=== PATIENT | female | born 1990 | race Caucasian/White ===

== ENCOUNTER 2016-10-10 05:00 | Emergency (ER) | payer MEDICAID, OTHER ==
[2016-10-10 05:35] LABS: BILIRUBIN,URINE NEGATIVE (NEGATIVE); PH,URINE 6.5 PH (5.0-7.5)
[2016-10-10 05:37] LABS: HCG UR QUAL NEGATIVE; UA w/ MICROSCOPIC CHARGE YES
[2016-10-10 05:38] LABS: UR CULTURE IF IND NOT INDICATED; WBC,URINE 0-3 /HPF (0-5)
--- NOTE | 2016-10-10 05:54 | ED Physician Documentation ---
History of Present Illness - Stated complaint Stated Complaint: ABDOMINAL,RT FLANK PAIN - Chief complaint Chief Complaint: Abd Pain - History obtained from History obtained from: Patient, Family - Additonal information Additional information: Patient is a 26-year-old female with a history of depression and anxiety on sertraline. She presents with a complaint of right upper quadrant and right flank pain that started early this morning at 1:30 AM. Positional changes did cause the pain to get better or worse. She had a recurrence of pain at 330 and decided to come into the emergency department. There is no nausea or vomiting. She has no constipation diarrhea, diarrhea, lower urinary symptoms, hematuria or vaginal discharge. She has never had this type of pain before. Review of systems: For pertinent positive and negatives in the review of systems please see history of present illness. Otherwise all other systems have been reviewed and are negative. Dragon disclaimer: Parts of this medical record were created using voice recognition technology. Because of the inherent limitations of this system occasional same sounding word substitutions do occur and persist despite proofreading. Please read the document for context. Review of Systems Ten Systems: 10 systems reviewed and negative Constitutional: denies: Fever, Chills, Myalgias GI: reports: Abdominal Pain. denies: Abdominal Swelling, Nausea, Vomiting, Constipation, Diarrhea, Hematemesis PD PAST MEDICAL HISTORY - Past Medical History Past Medical History: Yes Psych: Depression, Anxiety - Past Surgical History Past Surgical History: No - Present Medications Home Medications: Ambulatory Orders Medication Instructions Recorded Confirmed Bcp 10/10/16 Ondansetron Odt [Zofran] 4 mg TL Q6H PRN #10 tablet 10/10/16 Sertraline HCl 100 mg PO DAILY 10/10/16 10/10/16 Tramadol HCl 50 mg PO Q8HR PRN #14 tablet 10/10/16 - Allergies Allergies/Adverse Reactions: Allergies Allergy/AdvReac Type Severity Reaction Status Date / Time Sulfa (Sulfonamide Allergy Hives Verified 10/10/16 05:06 Antibiotics) Tetracyclines Allergy Hives Verified 10/10/16 05:06 - Social History Does the pt smoke?: No Smoking Status: Never smoker Does the pt drink ETOH?: Yes Does the pt have substance abuse?: No - Immunizations Immunizations are current?: Yes - POLST Patient has POLST: No PD ED PE NORMAL - General General: Alert and oriented X 3, No acute distress, Other (Large habitus female no apparent distress) - Neck Neck: Supple, no meningeal sign - Cardiac Cardiac: RRR, No murmur, No gallop, No rub - Respiratory Respiratory: No respiratory distress - Abdomen Abdomen: Normal bowel sounds, Other - Derm Derm: Normal color, Warm and dry (Minimal tenderness right upper quadrant and mild tenderness to percussion right flank) - Extremities Extremities: No deformity, No tenderness to palpate, Normal ROM s pain, No edema - Neuro Neuro: Alert and oriented X 3 Results - Vitals Vitals: Vital Signs - 24 hr 10/10/16 05:07 Temperature 36.0 C L Heart Rate 99 Respiratory 18 Rate Blood Pressure 145/95 H O2 Saturation 99 Oxygen O2 Source Room air - Labs Labs: Laboratory Tests 10/10/16 10/10/16 10/10/16 05:28 06:32 06:32 WBC 11.6 H RBC 4.30 Hgb 12.5 Hct 37.6 MCV 87.4 MCH 29.1 MCHC 33.3 RDW 13.7 Plt Count 277 MPV 7.9 Neut # 7.7 H Lymph # 2.9 [place] # 0.8 Eos # 0.1 Baso # 0.1 Absolute Nucleated RBC 0.01 Nucleated RBCs 0.1 Sodium 139 Potassium 3.8 Chloride 105 Carbon Dioxide 24 Anion Gap 10.0 BUN 10 Creatinine 0.9 Estimated GFR (MDRD) 77 L Glucose 116 H Calcium 9.1 Total Bilirubin 0.4 AST 20 ALT 23 Alkaline Phosphatase 59 Total Protein 7.3 Albumin 3.7 Globulin 3.6 Albumin/Globulin Ratio 1.0 Lipase 32 Urine Color YELLOW Urine Clarity CLEAR Urine pH 6.5 Ur Specific [place] 1.025 Urine Protein NEGATIVE Urine Glucose (UA) NEGATIVE Urine Ketones NEGATIVE Urine Occult Blood MODERATE H Urine Nitrite NEGATIVE Urine Bilirubin NEGATIVE Urine Urobilinogen 0.2 (NORMAL) Ur Leukocyte Esterase NEGATIVE Urine RBC 0-5 Urine WBC 0-3 Ur Squamous Epith Cells RARE Squamous Urine Bacteria None Seen Ur Microscopic Review INDICATED Urine Culture Comments NOT INDICATED Urine HCG, Qual NEGATIVE PD MEDICAL DECISION MAKING - ED course Complexity details: reviewed old records, reviewed results, re-evaluated patient ED course: Patient is a 26-year-old female who presents with right upper quadrant abdominal pain. She also has right upper quadrant abdominal tenderness on examination. She is a large habitus female no apparent distress. Her pain is mostly gone at this point in time. Quick portable ultrasound done by me demonstrates a large gallstone in the gallbladder quick look at the kidney failed to show any evidence of overt hydronephrosis. At this point in time I am waiting for ultrasound and lab work. This patient looks good I think she can be safely discharged home with surgical follow-up. I did talk with her in fairly significant detail about gallstones, biliary colic and what to expect. Final disposition is pending waiting studies Disposition pending studies but suspect she will be discharged Clinical impression: 1. Right upper quadrant abdominal pain with gallstone on portable ultrasound suspect biliary colic, confirmatory studies pending Departure - Departure Clinical Impression: Biliary colic Condition: Good Instructions: ED Gallstone W Biliary Colic Follow-Up: Danny Monahan MD [Provider Admit Priv/Credential] - Prescriptions: Tramadol HCl 50 mg PO Q8HR PRN #14 tablet PRN Reason: Pain Ondansetron Odt [Zofran] 4 mg TL Q6H PRN #10 tablet PRN Reason: Nausea / Vomiting
[2016-10-10 06:38] LABS: BASOPHILS # (AUTO) 0.1 10^3/uL (0.0-0.1); BASOPHILS % (AUTO) 0.7 %; EOSINOPHILS # (AUTO) 0.1 10^3/uL (0.0-0.7); HCT - HEMATOCRIT 37.6 % (37.0-47.0); HGB - HEMOGLOBIN 12.5 g/dL (12.0-16.0); LYMPHOCYTES # (AUTO) 2.9 10^3/uL (1.5-3.5); LYMPHOCYTES % (AUTO) 25.1 %; MEAN CORPUSCULAR HEMOGLOBIN 29.1 pg (27.0-31.0); MEAN CORPUSCULAR HGB CONC 33.3 g/dL (32.0-36.0); MEAN CORPUSCULAR VOLUME 87.4 fL (81.0-99.0); MEAN PLATELET VOLUME 7.9 fL (7.9-10.8); MONOCYTES # (AUTO) 0.8 10^3/uL (0.0-1.0); MONOCYTES % (AUTO) 6.8 %; NEUTROPHILS # (AUTO) 7.7 10^3/uL (1.5-6.6); NEUTROPHILS % (AUTO) 66.4 %; NUCLEATED RED BLOOD CELLS AUTO 0.1 /100WBC; RED CELL DISTRIBUTION WIDTH 13.7 % (12.0-15.0); UNCORRECTED WHITE BLOOD COUNT 11.6 x10^3/uL; WHITE BLOOD COUNT 11.6 x10^3/uL (4.8-10.8)
[2016-10-10 06:50] LABS: BILIRUBIN,TOTAL 0.4 mg/dL (0.2-1.0); CALCIUM 9.1 mg/dL (8.5-10.3); CREATININE 0.9 mg/dL (0.4-1.0); POTASSIUM 3.8 mmol/L (3.5-5.0); TOTAL PROTEIN 7.3 g/dL (6.7-8.2)
[2016-10-10] MEDS ORDERED: ONDANSETRON ODT 4 MG TABLET TL STA (06:57)
[2016-10-10] MEDS ORDERED: HYDROcod/ACET 5/325 Prepack 6 PO STA (06:57)
[2016-10-10] MEDS ORDERED: HYDROcod/ACETAM 5/325 MG TABLET PO STA (07:00)
[2016-10-10] MEDS ORDERED: HYDROcod/ACETAM 5/325 MG TABLET ONE ×2 (07:06→07:33)
[2016-10-10] MEDS ORDERED: ONDANSETRON ODT 4 MG TABLET ONE ×2 (07:06→07:34)
--- NOTE | 2016-10-10 08:00 | Ultrasound Preliminary Report ---
Exam: US Abdomen Limited IMPRESSION: 1. Cholelithiasis. 2. Fatty liver infiltration. [facility] SITE ID: [id number]
--- NOTE | 2016-10-10 08:03 | Ultrasound Report ---
EXAM: ABDOMEN ULTRASOUND LIMITED, RUQ EXAM DATE: 10/10/2016 07:12 AM. CLINICAL HISTORY: RUQ/R flank pain/gallstone on portable US. COMPARISON: CT 06/11/2014. TECHNIQUE: Real-time scanning was performed with static images obtained. FINDINGS: Liver: Increased in echogenicity. No focal lesion. 16.4 cm. Main portal vein flow: Hepatopetal. Gallbladder: Stone in the neck of the gallbladder measuring 2.3 cm maximum diameter, non-mobile. No w all thickening or pericholecystic fluid. Negative sonographic Ross sign. Biliary System: CBD measures 5.2 mm. No intrahepatic or extrahepatic ductal dilatation. Other: Right kidney 11.7 cm in length without hydronephrosis. IMPRESSION: 1. Cholelithiasis. 2. Fatty liver infiltration. [facility] Referring Provider Line: [phone] SITE ID: [id number]
--- NOTE | 2016-10-10 08:07 | ED Physician Documentation ---
ED Addendum - Addendum Addendum: 10/10/16 08:05 pt turnend over to me at 730 Am, seen by night EMP and worked up, dx biliary colic, sono complete and reviewed by night EMP just waiting for formal rad report to be sure no further abn, sono result as expected and pt dced as planned
[2016-10-10 08:45] VITALS: BP 130/90
== END 2016-10-10 08:47 | disposition home or self-care (01) ==
LOC: ED 05:00
DX: K80.50 Calculus of bile duct without cholangitis or cholecystitis without obstruction (principal)
CPT/HCPCS: 36415; 76705; 80053; 81001; 81025; 83690; 85025; 99283; A9270; Q0162; 81003; 87086

== ENCOUNTER 2016-11-20 13:30 | Day surgery (SDC) | payer MEDICAID ==
[2016-11-20] MEDS ORDERED: LACTATED RINGERS 1,000 ML IV ONE ×2 (13:56→17:33)
[2016-11-20 14:14] LABS: HCG UR QUAL NEGATIVE
[2016-11-20] MEDS ORDERED: SCOPOLAMINE PATCH TOP ONE (14:19)
[2016-11-20] MEDS ORDERED: BUPIVACAINE 0.5% PF 30 ML VIAL SUBQ ONE (14:41)
[2016-11-20] MEDS ORDERED: ceFAZolin 3 GM/20 ML SYRINGE IVP ONE (15:00)
--- NOTE | 2016-11-20 16:55 | SURGERY HX AND PHYSICAL(T) ---
Surgical History & Physical - PMH/PSH/Social Hx Does the pt have a hx of MRSA?: No Eyes, Ears, Nose, Throat: Chronic vision loss Cardiovascular: None Respiratory: None Skin: None Endocrine/Autoimmune: None Gastrointestinal: Chronic diarrhea, Cholelithiasis Urinary: None Musculoskeletal: None Psychiatric: Depression, Anxiety, Panic attacks, Other Smoking Status: Never smoker Does the pt drink ETOH?: Yes Frequency: Occasional Does the pt have substance abuse?: No Substance Use and Type: Marijuana - Home Meds and Allergies Home Medications: Sertraline HCl 100 mg PO DAILY 10/10/16 Norgestimate-Ethinyl Estradiol [Tri-Sprintec Tablet] 1 tab PO DAILY 11/13/16 Allergies/Adverse Reactions: Allergies Allergy/AdvReac Type Severity Reaction Status Date / Time Sulfa (Sulfonamide Allergy Hives Verified 10/10/16 05:06 Antibiotics) Tetracyclines Allergy Hives Verified 10/10/16 05:06 - Vital Signs Temperature: 36 C Respiratory Rate: 16 O2 Saturation: 97 Weight (kg): 117.93 kg Height: 1.63 m - Patient Review Patient Review: Problems were reviewed with the patient during this visit. Medications were reviewed with the patient during this visit. Allergies were reviewed this patient during this visit. Pertinent Tests Reviewed: All pertitent test for this patient were reviewed. - Assessment & Plan Assessment and Plan: Dr. Ashley Cannon initially sent this very pleasant 26-year-old female to our office for the exact same reason back in October 18, 2016. Because more than 30 days were allowed to elapse between the time that the patient was seen in the time of the procedure this new history and physical/update history and physical is mandated. The patient states that the pain is sharp, stabbing, and severe enough where she was doubled over in pain. Eating (especially fatty foods) is an aggravating factor whereas time or pain medications are the only alleviating factors. The patient denies hematemesis, melena, hematochezia, jaundice, or light-colored stools. As an aside she recognized the fact that I am of [place] descent and I recognized that she is of [place] descent. We both speak Nepalese and she frequently goes to [place] to visit with her extended family. Her parents, I believe Ailyn and Henrique, own and operate [employer] is in [place]. Her sister, Caterina, would like to keep the gallstone. Allergies: SULFA (Moderate) * ALL "CYCLINE" ANTIBIOTICS (Moderate) Current Meds: SERTRALINE HCL 50 MG ORAL TABS (SERTRALINE HCL) Take one tablet by mouth daily BACTROBAN OINT (MUPIROCIN OINT) Apply in each nostril twice daily. BIOFREEZE 4 % EXT GEL (MENTHOL (TOPICAL ANALGESIC)) Apply to aching muscles as needed prn TRI-SPRINTEC 0.18/0.215/0.25 MG-35 MCG TABS (NORGESTIM-ETH ESTRAD TRIPHASIC) Take 1 tablet by mouth daily Past Medical History: Epidermal inclusion cyst (ICD-706.2) (QPW58-L20.0) Shoulder pain, left (ICD-719.41) (XFH88-F62.512) Obesity (ICD-278.00) (XSO63-X59.9) Anxiety (ICD-300.00) (WID73-R37.9) Amenorrhea, secondary (ICD-626.0) (VRI01-E78.1) IRRITABLE BOWEL SYNDROME (ICD-564.1) (NSV22-C30.9) DEFICIENCY, VITAMIN D NOS (ICD-268.9) (YCQ64-C58.9) ACNE VULGARIS (ICD-706.1) (LNT95-I46.0) DEPRESSION (ICD-311) (THP50-C28.9) Panic Attacks Past Surgical History: Reviewed history from 10/09/2012 and no changes required: Cyst Removal Family History Summary: Reviewed history Last on 07/31/2016 and no changes required:11/20/2016 Father (biol.) - Has a Hx of Weight Disorder - Entered On: 11/18/2013 Mother (biol.) - Has Family History of Other Diseases - Skin Cancer - Entered On : 10/18/2016 Risk Factors: Smoked Tobacco Use: Never smoker Smokeless Tobacco Use: Never Passive smoke exposure: yes Drug use: no HIV high-risk behavior: no Caffeine use: 1 drinks per day Alcohol use: yes Type: liquor Drinks per day: social Exercise: yes Times per week: 4 Type of Exercise: Working Seatbelt use: 100 % Sun Exposure: occasionally Family History Risk Factors: Family History of [place] in females < 65 years old: no Family History of [place] in males < 55 years old: no Previous Tobacco Use: Signed On - 10/12/2016 Smoked Tobacco Use: Never smoker Smokeless Tobacco Use: Never Passive smoke exposure: yes Drug use: no HIV high-risk behavior: no Caffeine use: 1 drinks per day Review of Systems CONSTITUTIONAL: No weight loss, fever, chills, weakness or fatigue. HEENT: Eyes: No visual loss, blurred vision, double vision or yellow sclerae. Ears, Nose, Throat: No hearing loss, sneezing, congestion, runny nose or sore throat. SKIN: No rash or itching. POSITIVE for acne vulgaris. CARDIOVASCULAR: No chest pain, chest pressure or chest discomfort. No palpitations or edema. RESPIRATORY: No shortness of breath, cough or sputum. GASTROINTESTINAL: No anorexia, nausea, vomiting or diarrhea. No abdominal pain or blood. Diagnosed with IBS. GENITOURINARY: No dysuria. Not . NEUROLOGICAL: No headache, dizziness, syncope, paralysis, ataxia, numbness or tingling in the extremities. No change in bowel or bladder control. MUSCULOSKELETAL: No muscle, back pain, or stiffness. POSITIVE for shoulder pain. HEMATOLOGIC: No anemia, bleeding or bruising. LYMPHATICS: No enlarged nodes. No history of splenectomy. PSYCHIATRIC: POSITIVE for depression - anxiety, and some panic attacks. ENDOCRINOLOGIC: No reports of sweating, cold or heat intolerance. No polyuria or polydipsia. ALLERGIES: No history of asthma, hives, eczema or rhinitis. Physical Exam General: 26 year old female, appears stated age, well developed, well nourished , evaluate in Room [address] [facility] [place] HEENT: Normocephalic, atraumatic, extraocular movement intact, mucous membranes pink and moist, sclera anicteric and not injected Neck: Supple without pain on palpation, mass or bruit Cardiac: Regular rate and rhythm without rub, gallop, or murmur Chest: Clear to auscultation bilaterally Abdomen: Soft, very mild tenderness in the right upper quadrant, normoactive bowel sounds, no hepatomegaly, no splenomegaly Genitourinary: Deferred Rectal: Deferred Extremities: No gross neurovascular problem, no clubbing, cyanosis or edema Gait: Not evaluated. Psychiatric: Alert and oriented to person place and time, asks and answers questions appropriately, mood and affect appropriate Impression & Recommendations: Laparoscopic cholecystectomy, possible open cholecystectomy, possible intraoperative cholangiogram, possible common bile duct exploration. The indications, procedure, alternatives including no surgery, possible risks including infection (deep or superficial), bleeding requiring transfusion (with all of its risks), common bile duct injury and were fully explained to the patient and all questions answered. I korin pictures to help describe what the gallbladder is and how it works. I also explained the pathophysiology. I explained that following the surgery I did not want her lifting anything over 15 pounds for 6 weeks to allow for optimal healing and to decrease the likelihood that a hernia would occur. All questions were fully answered. Verbal and written consent was obtained. The patient, in preparation for surgery will be nothing by mouth, receive a soap and water shower, and receive 2 g of Ancef with induction. I asked her to contact me with any surgical questions and her concerns and she stated that she would. I asked her to let me know if there is any way we can make her say at [facility] more comfortable and she stated that she would let me know. 20minutes of [id number] time spent with the patient, over 80% in discussion and coordination of her care
[2016-11-20] MEDS ORDERED: DEXAMETHASONE 4 MG/ML VIAL IVP ONE (17:22)
[2016-11-20] MEDS ORDERED: NEOSTIGMINE 1 MG/1 ML 10 ML MDV IVP ONE (17:22)
[2016-11-20] MEDS ORDERED: ONDANSETRON 4 MG/2 ML VIAL IVP ONE (17:22)
[2016-11-20] MEDS ORDERED: HYDROmorphone 1 MG/ML SYRINGE IVP ONE (17:22)
[2016-11-20] MEDS ORDERED: MIDAZOLAM 2 MG/2 ML VIAL IVP ONE (17:22)
[2016-11-20] MEDS ORDERED: PROPOFOL 200 MG/20 ML VIAL IVP ONE (17:22)
[2016-11-20] MEDS ORDERED: SUCCINYLCHOLINE 200 MG/10 ML VIAL IVP ONE (17:22)
[2016-11-20] MEDS ORDERED: LIDOCAINE-MPF 2% 5 ML VIAL IM ONE (17:22)
[2016-11-20] MEDS ORDERED: GLYCOPYRROLATE 1 MG/5 ML VIAL IVP ONE (17:22)
[2016-11-20] MEDS ORDERED: ROCURONIUM 50 MG/5 ML VIAL IVP ONE (17:22)
--- NOTE | 2016-11-20 18:46 | OPERATIVE REPORT ---
Operative Report - General Planned Procedure: Laparoscopic cholecystectomy Pre-Op Diagnosis: Biliary colic Procedure Performed: Laparoscopic cholecystectomy Post Op Diagnosis: Same - Procedure Note Primary Surgeon: Danny Monahan Secondary Surgeon: Fatmata Ennis Anesthesia Technique: General ET tube, Local (30 mL 1/2% marcaine) IV Fluids (mL): 1,300 Estimated Blood Loss (mL): 200 Drain/Tube Type: Self contained Complications: None. - Other Other Information/Narrative: OPERATIVE DESCRIPTION/REPORT: After verbal and written informed consent was obtained detailing the risks of infection, bleeding with all of its risks including transfusion, common bile duct injury, and the patient was brought to the operative suite and placed in the supine position on the operating room table. Monitoring devices were applied along with TEDs and pneumatic compressive stockings. Care was taken to avoid pressure points. Prophylactic antibiotics were given. An adequate level of general endotracheal anesthesia was established by Dr. Ennis. The abdomen was then prepped with ChloraPrep and draped in a sterile fashion. A "time in" then confirmed that the paitient was identified with 3 identifiers ( name, date and medical record number), the history and physical was in the chart, the signed consent confirming the procedure was in the chart, the patient was in the correct position, the aforementioned prophylactic measures were in place or given, we had the correct personel and equipment to complete the procedure and that anesthesia, surgery and nursing were given an opportunity to express any concerns. The initial incision was at the umbilicus and dissection to the linea alba was completed using blunt dissection. The linea alba was grasped with a Rosetta and incised. In a similar manner the peritoneum was grasped and incised using Metzenbaum scissors. In this location, a 12 mm blunt tipped, balloon tipped port was placed and the balloon was inflated to keep the port in position. The abdominal cavity was insufflated with carbon dioxide to steady-state pressure of 15 mmHg. Three additional 5 mm ports were placed in standard location for laparoscopic cholecystectomy (subxiphoid and 2 right subcostal) under direct vision of the 30 degree laparoscope and without incident. The patient was then placed in reverse Trendelenburg position and was rotated slightly to their left. The gallbladder fundus was grasped with an atraumatic grasper. Multiple adhesions had to be taken down by blunt and sharp dissection along with electrocautery. Eventually, we identified the infundibulum, and this was then grasped and retracted inferior and laterally. Dissection was then begun in the angle of Calot. During the dissection of the cystic duct the cystic artery was encountered and there was some bleeding from the artery until an clip could be placed on it. The cystic duct had to be identified, clipped and transected until the clip could be placed securely on the cystic artery (I needed to get the cystic duct "out of the way"). The critical view was obtained. Two clips proximally and one clip distally were used to control both the cystic duct and cystic artery. The clips were carefully placed on the cystic duct to avoid occluding the juncture with the common bile duct. Ultimately both the cystic duct and the cystic artery were then transected with laparoscopic shearsafter being doubly clipped proximally and distally. The gallbladder was then removed from its fossa in a retrograde fashion using electrocautery. With the 30 degree 5 mm scope in the subxiphoid position, the gallbladder was placed in an EndoCatch bag to be extracted through the 12 mm port site. I irrigated the right upper quadrant with a liter of warm sterile saline, and the area was aspirated dry. I inspected the gallbladder fossa and there was no bleeding or bile leak. Clips on the cystic duct and cystic artery appeared to be secure. I briefly visually explored the abdomen. There was no other evidence of overt pathology. I injected the port sites at the peritoneal, fascial, and skin levels under direct vision with 0.5% Marcaine. All ports and the EndoCatch containing the gallbladder were removed. Following gallbladder removal, the remaining carbon dioxide was expelled from the abdomen. The fascia at the umbilicus was reapproximated using 2 [id number] 0 Vicryl sutures. The skin at each port site was approximated using a subcuticular 4-0 Monocryl. The surgical count of instruments, needles and sponges was reported as correct twice. Mastisol, Steri-Strips and sterile surgical dressings were applied. The patient was then awakened from anesthesia, extubated, and having tolerated the procedure well, was transported to the recovery room. No complications were encountered. A "time out" confirmed the operation performed , the fluids given, the estimated blood loss and anesthesia, surgery and nursing were given an opportunuty to express any concerns.
[2016-11-20] MEDS: fentaNYL 100 MCG/2 ML VIAL ONE ×2 (19:15→19:36)
[2016-11-20 20:47] VITALS: BP 134/85
== END 2016-11-20 13:31 | disposition home or self-care (01) ==
LOC: SDS 13:30
PROVIDERS: ATTEND Surgery
PROC: 0FT44ZZ Resection of Gallbladder, Percutaneous Endoscopic Approach (ICD-10-PCS; principal; 2016-11-20 14:45)
DX: K80.50 Calculus of bile duct without cholangitis or cholecystitis without obstruction (principal)
CPT/HCPCS: 47562; 81025; J1170; J3490; J7120; 88304

== ENCOUNTER 2017-02-27 14:41 | Outpatient (CLI) | payer MEDICAID ==
[2017-02-27 13:35] LABS: BASOPHILS % (AUTO) 0.3 %; EOSINOPHILS # (AUTO) 0.2 10^3/uL (0.0-0.7); EOSINOPHILS % (AUTO) 2.6 %; HCT - HEMATOCRIT 37.2 % (37.0-47.0); HGB - HEMOGLOBIN 12.3 g/dL (12.0-16.0); LYMPHOCYTES # (AUTO) 2.3 10^3/uL (1.5-3.5); LYMPHOCYTES % (AUTO) 26.9 %; MEAN CORPUSCULAR HEMOGLOBIN 27.5 pg (27.0-31.0); MEAN CORPUSCULAR HGB CONC 33.1 g/dL (32.0-36.0); MEAN CORPUSCULAR VOLUME 82.9 fL (81.0-99.0); MEAN PLATELET VOLUME 8.5 fL (7.9-10.8); MONOCYTES # (AUTO) 0.6 10^3/uL (0.0-1.0); MONOCYTES % (AUTO) 6.8 %; NEUTROPHILS # (AUTO) 5.4 10^3/uL (1.5-6.6); NEUTROPHILS % (AUTO) 63.4 %; RED BLOOD COUNT 4.49 10^6/uL (4.20-5.40); RED CELL DISTRIBUTION WIDTH 16.5 % (12.0-15.0); UNCORRECTED WHITE BLOOD COUNT 8.5 x10^3/uL; WHITE BLOOD COUNT 8.5 x10^3/uL (4.8-10.8)
[2017-02-27 14:03] LABS: ALBUMIN/GLOBULIN RATIO 1.2 (1.0-2.2); BILIRUBIN,TOTAL 0.5 mg/dL (0.2-1.0); BUN - BLOOD UREA NITROGEN 10 mg/dL (6-20); CALCIUM 8.8 mg/dL (8.5-10.3); CARBON DIOXIDE - CO2 25 mmol/L (21-32); CHLORIDE 105 mmol/L (101-111); CHOL/HDL RATIO 3.1 (<4.4); CHOLESTEROL 152 mg/dL; CREATININE 0.8 mg/dL (0.4-1.0); GFR - MDRD 88 (>89); GLUCOSE 93 mg/dL (70-100); HDL CHOLESTEROL 49 mg/dL; LDL/HDL RATIO 1.7 (<4.4); POTASSIUM 3.7 mmol/L (3.5-5.0); SODIUM 137 mmol/L (135-145); TOTAL PROTEIN 7.4 g/dL (6.7-8.2); TRIGLYCERIDES 107 mg/dL; VLDL CHOLESTEROL 21 mg/dL
[2017-02-27 14:04] LABS: HEMOGLOBIN A1C 0.42 g/dL
== END 2017-02-27 14:42 | disposition home or self-care (01) ==
LOC: LAB.WCP 14:41
PROVIDERS: ATTEND Family Medicine
DX: Z00.00 Encounter for general adult medical examination without abnormal findings (principal)
CPT/HCPCS: 36415; 80053; 80061; 83036; 84443; 85025

== ENCOUNTER 2018-08-11 07:05 | Outpatient (CLI) | payer MEDICAID ==
[2018-08-11 12:33] LABS: BASOPHILS # (AUTO) 0.1 10^3/uL (0.0-0.1); EOSINOPHILS # (AUTO) 0.3 10^3/uL (0.0-0.7); EOSINOPHILS % (AUTO) 2.9 %; HGB - HEMOGLOBIN 13.1 g/dL (12.0-16.0); LYMPHOCYTES # (AUTO) 3.7 10^3/uL (1.5-3.5); LYMPHOCYTES % (AUTO) 36.6 %; MEAN CORPUSCULAR HEMOGLOBIN 28.5 pg (27.0-31.0); MEAN CORPUSCULAR HGB CONC 32.9 g/dL (32.0-36.0); MEAN CORPUSCULAR VOLUME 86.6 fL (81.0-99.0); MONOCYTES # (AUTO) 0.7 10^3/uL (0.0-1.0); MONOCYTES % (AUTO) 6.6 %; NEUTROPHILS # (AUTO) 5.3 10^3/uL (1.5-6.6); NEUTROPHILS % (AUTO) 52.9 %; PLT - PLATELET COUNT 356 10^3/uL (130-450); RED BLOOD COUNT 4.59 10^6/uL (4.20-5.40); RED CELL DISTRIBUTION WIDTH 13.7 % (12.0-15.0)
== END 2018-08-11 07:06 | disposition home or self-care (01) ==
LOC: LAB.WCP 07:05
PROVIDERS: ATTEND Physician Assistant
DX: F32.9 Major depressive disorder, single episode, unspecified (principal)
CPT/HCPCS: 36415; 84443; 85025

== ENCOUNTER 2018-10-10 13:42 | Outpatient (CLI) | payer MEDICAID ==
[2018-10-10 19:11] LABS: ALBUMIN 3.7 g/dL (3.2-5.5); ALBUMIN/GLOBULIN RATIO 0.9 (1.0-2.2); BILIRUBIN,TOTAL 0.6 mg/dL (0.2-1.0); CALCIUM 9.5 mg/dL (8.5-10.3); CREATININE 0.8 mg/dL (0.4-1.0)
[2018-10-10 19:12] LABS: HEMOGLOBIN A1C 0.46 g/dL; HEMOGLOBIN A1C % 5.2 % (4.6-6.2)
== END 2018-10-10 13:43 | disposition home or self-care (01) ==
LOC: LAB.WCP 13:42
PROVIDERS: ATTEND Family Medicine
DX: Z00.00 Encounter for general adult medical examination without abnormal findings (principal); K58.9 Irritable bowel syndrome, unspecified; E66.9 Obesity, unspecified; N91.1 Secondary amenorrhea; F32.9 Major depressive disorder, single episode, unspecified
CPT/HCPCS: 36415; 80053; 83036; 84443

== ENCOUNTER 2019-03-11 09:39 | Outpatient (CLI) | payer MEDICAID ==
[2019-03-11 13:05] LABS: T4 (THYROXINE) 10.93 ug/dL (6.09-12.23)
[2019-03-11 13:09] LABS: THYROID STIMULATING HORMONE 2.45 uIU/mL (0.34-5.60)
== END 2019-03-11 23:59 | disposition home or self-care (01) ==
LOC: LAB.WCP 09:39
PROVIDERS: ATTEND Physician Assistant
DX: K58.9 Irritable bowel syndrome, unspecified (principal); R63.5 Abnormal weight gain
CPT/HCPCS: 36415; 81599; 84436; 84443; 86003

== ENCOUNTER 2019-10-10 12:51 | Outpatient (CLI) | payer MEDICAID ==
--- NOTE | 2019-10-10 17:09 | Ultrasound Report ---
PROCEDURE: Head or Neck Soft Tissue INDICATIONS: SUBCU MASS OF NECK TECHNIQUE: Real time scanning was performed of the neck region of interest, with image documentation . COMPARISON: None. FINDINGS: Scanning is performed at the area of clinical concern. Within the left lower lateral neck, there is a superficial hypoechoic, ovoid subcutaneous nodule seen that measures 9 x 4 x 7 mm. No abno rmal vascularity is seen. More superiorly within the left lateral neck, there is a normal-sized lymph node measuring 10 x 7 x 4 mm. Borderline prominent lymph nodes are seen adjacent to the submandibular glands on each side. IMPRESSION: Normal-appearing lymph nodes are seen by ultrasound, without suspicious masses. If there is strong clinical concern for a clinically relevant mass, please consider a follow-up soft tissue neck protocol CT with IV contrast. Reviewed by: Sanjay Montgomery MD on 10/10/2019 4:08 PM [facility] Approved by: Sanjay Montgomery MD on 10/10/2019 4:08 PM [facility] Station ID: [id number]
== END 2019-10-10 12:52 | disposition home or self-care (01) ==
LOC: DI 12:51
PROVIDERS: ATTEND Physician Assistant
DX: R22.1 Localized swelling, mass and lump, neck (principal)
CPT/HCPCS: 76536

== ENCOUNTER 2020-09-05 08:00 | Outpatient (CLI) | payer MEDICAID | END 2020-09-05 23:59 | disposition home or self-care (01) | LOC: LAB.N 08:00 | PROVIDERS: ATTEND Family Medicine | DX: N61.1 Abscess of the breast and nipple (principal) | CPT/HCPCS: 87070; 87077; 87181; 87205 ==

== ENCOUNTER 2023-09-10 12:30 | Outpatient (CLI) | payer BC | END 2023-09-10 12:31 | disposition home or self-care (01) | LOC: SC 12:30 | PROVIDERS: ATTEND Nurse Practitioner Family | DX: G47.33 Obstructive sleep apnea (adult) (pediatric) (principal); E66.9 Obesity, unspecified; Z68.42 Body mass index [BMI] 45.0-49.9, adult | CPT/HCPCS: 95806 ==

== ENCOUNTER 2023-10-16 13:32 | Outpatient (CLI) | payer BC ==
--- NOTE | 2023-10-16 14:03 | Sleep Patient Instructions ---
Sleep Center Visit Summary - Patient Visit Information Reason for Visit: Sleep study follow-up - Patient Instructions Additional Instructions: You have opted for an oral mandibular appliance to control your sleep apnea. A list of certified dentists in the area was provided for you to find a dentist to have your oral appliance made. Once you have the device, please call and make a follow up appointment. We need to see you after you have been using the appliance for a month. We will evaluate your response to therapy and order a follow up sleep study to check efficiency of treatment. Please call office to schedule a follow up appointment in the sleep care office one month after obtaining new device. - Clinic Information Contact: [facility] [address] [place] [address] [email or web address] T: [phone]
--- NOTE | 2023-10-16 14:14 | SLEEP CARE CONSULTATION ---
Information from patient questionnaire entered by Tamica Brewer. I have reviewed and concur with the information entered by Tamica Brewer. This document represents the service I personally performed and the decisions made by , Grazyna Riley ARNP. History of Present Illness Service Date and Time: 10/16/2023 1332 Initial [place] Sleepiness Scale score: 0 (08/16/23) Current [place] Sleepiness Scale score: 1 (10/16/23) Additional HPI information: GABINO VELOZ returns for follow up and results of the recently performed home sleep study. The sleep study done on 09/11/2023 showed mild obstructive sleep apnea with an average AHI of 6.5 and harsh oxygen saturation of 90%. I explained the pathophysiology behind obstructive sleep apnea. We then spent quite a bit of time discussing different treatment options. For mild obstructi ve sleep apnea, surgery and oral appliance are alternatives to nasal CPAP therapy but in moderate or severe cases, nasal CPAP is the most effective and reliable treatment. I reviewed the impact of weight changes on sleep apnea and strongly recommended losing weight. After some discussion, the patient opted to go with the oral appliance. Patient counseled not drink alcohol less than 4 hours before bedtime as it can increase snoring and apnea. Patient was cautioned about risks of drowsy driving until sleepiness symptoms resolve. Patient denies drowsy driving. Sleep Study - Results Type of Sleep Study: Home sleep study (COMPLETED 09/11/23) Prior sleep studies: No Polysomnography/Home Sleep Study results: Physician Impression: The quality of the study is good. The length of the study is adequate (> 240 minutes). Please also see the tabulated and graphic data. 1. Obstructive Sleep Apnea-Hypopnea (ICD-10 G47.33), mild, with an AHI of 6.5/hr and harsh SaO2 of 90%. During the study, the patient had 1 apnea (1 obstructive, 0 central, 0 mixed) and 48 hypopneas. The longest episode lasted 67.0 seconds. The respiratory events occurred independently of sleep stage and body position (supine AHI was 7.5 and non-supine, 6.44). Allergies and Home Medications Known drug allergies: Yes (as listed) Drug allergies reviewed: Yes Home medication list reviewed: Yes (no changes) Allergy and home medication list: Allergies bupropion [From Wellbutrin] Allergy (Verified 10/14/23 10:43) Edema Sulfa (Sulfonamide Antibiotics) Allergy (Verified 10/14/23 10:43) Hives Tetracyclines Allergy (Verified 10/14/23 10:43) Hives Review of Systems Review of systems same as previous: Yes (NO CHANGE) Physical Exam Vital signs obtained and entered by: TAMICA Bradley MA Blood Pressure: 151/89 (LEFT ARM) Cuff size: long Heart Rate: 98 O2 Saturation: 100 Height: 5 ft 4 in Weight: 290 lb 6.4 oz Body Mass Index: 49.8 BMI Classification: Morbidly Obese Impression and Plan 1. Obstructive Sleep Apnea-Hypopnea Syndrome, mild, with lowest oxygen s aturation of 90%. 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 Positive pressure therapy could benefit fibromyalgia, anxiety, depression and gastric reflux. As mentioned above, the patient chose an oral appliance to treat their apnea. A follow up will be made to see if appliance has reduced symptoms. If so, another polysomnography will be ordered with use of the oral appliance to check efficacy in reducing apnea. 2. Obesity, unspecified. Currently patients BMI is 49.8. Obesity increases the risk of apnea, CPAP pressure requirements and overall health risks especially cardiovascular and diabetes. Thus patient is advised to lose weight. * Oral appliance * Attempt to lose weight. * Avoid alcohol consumption near bedtime. * Avoid supine sleep until using oral appliance * Return one month after oral appliance obtained. I will assess response to therapy at that time. Counseling Topics: Weight loss health impact Prescriptions: Other (Oral appliance) Visit Type: In Office Time Spent with Patient (minutes): 28 Provider Statement: I spent 100% of the Face to Face Visit with the patient with greater than 50% spent counseling the patient and coordination of care.
[2023-10-16 14:19] VITALS: BP 151/89; O2SAT 100
== END 2023-10-16 13:33 | disposition home or self-care (01) ==
LOC: SC 13:32
PROVIDERS: ATTEND Nurse Practitioner Family
DX: G47.33 Obstructive sleep apnea (adult) (pediatric) (principal); E66.01 Morbid (severe) obesity due to excess calories; Z68.42 Body mass index [BMI] 45.0-49.9, adult
CPT/HCPCS: 99212; 99213